=== PATIENT | female | born 1995 | race Caucasian/White ===

== ENCOUNTER 2017-04-12 08:23 | Day surgery (SDC) | payer MEDICARE, OTHER ==
[~2017-04-12] VITALS: Ht 167.6 cm; Wt 70.9 kg
[~2017-04-12 08:23] MED LIST: BUSP10; NEXPLANON68 MG
== END 2017-04-12 15:15 | disposition home or self-care (01) ==
LOC: ORSCSDS 08:23
PROVIDERS: Podiatrist Foot & Ankle Surgery
PROC: 0LXW0ZZ Transfer Left Foot Tendon, Open Approach (ICD-10-PCS; principal; 2017-04-12 10:30)
PROC: 0QSM04Z Reposition Left Tarsal with Internal Fixation Device, Open Approach (ICD-10-PCS; principal; 2017-04-12 10:30)
PROC: 0L8P0ZZ Division of Left Lower Leg Tendon, Open Approach (ICD-10-PCS; principal; 2017-04-12 10:30)
PROC: 0MQR0ZZ Repair Left Ankle Bursa and Ligament, Open Approach (ICD-10-PCS; principal; 2017-04-12 10:30)
DX: M21.42 Flat foot [pes planus] (acquired), left foot (principal); M77.52 Other enthesopathy of left foot and ankle
CPT/HCPCS: C1713; C1769; J0171; J0690; J1885; J2250; J2405; J3010; J7120

== ENCOUNTER → 2017-08-15 | Outpatient (CLI) | payer MEDICARE, OTHER ==
[2017-08-20 11:06] LABS: DIAGNOSIS: CommentC
== END ==
LOC: LAB 16:00 → LAB SHORT 16:00
PROVIDERS: Registered Nurse Community Health
DX: Z12.4 Encounter for screening for malignant neoplasm of cervix (principal)
CPT/HCPCS: G0123